=== PATIENT | female | born 1970 | race African-American/Black ===

== ENCOUNTER 2019-09-27 12:43 | Emergency (ER) | payer SELFPAY ==
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
[2019-09-27 16:34] VITALS: TEMP 98.4; O2SAT 97
[2019-09-27 16:37] VITALS: BP 137/78
== END 2019-09-27 16:28 | disposition home or self-care (01) ==
LOC: ER 12:43
DX: S30.1XXA Contusion of abdominal wall, initial encounter (principal); M79.641 Pain in right hand; M25.562 Pain in left knee; V49.40XA Driver injured in collision with unspecified motor vehicles in traffic accident, initial encounter
CPT/HCPCS: 36415; 70450; 71260; 72125; 74177; Q9967